=== PATIENT | female | born 1950 | race Caucasian/White ===

== ENCOUNTER 2021-05-29 11:06 | Emergency (ER) | payer MEDICARE, SELFPAY ==
[2021-05-29 11:26] VITALS: BP 174/81; PULSE 73; RESP 18; TEMP 36.7; O2SAT 93; BMI 30.1
--- NOTE | 2021-05-29 12:42 | XR_ITS ---
WS: [id number] XR chest 1V portable [id number] REASON FOR EXAM: cough FINDINGS: Mild tortuosity the thoracic aorta. Normal heart size. There are reticular lung opacities diffusely in both lungs of unknown chronicity. No pleural effusion. Bony thorax intact. XR/XR chest 1V portable [id number] IMPRESSION: Reticular lung opacities unknown chronicity. Findings are compatible with subac rené pneumonitis. Covid pneumonitis often has this appearance early on. Correlat e with the clinical setting.
--- NOTE | 2021-05-29 12:43 | ED_ITS ---
HPI - COVID General: Chief Complaint: COVID symptoms Stated Complaint: N/V/COVID EXPOSURE Time Seen by Provider: 05/29/21 12:30 Triage information: Has fever, cough or shortness of breath . Exposure to COVID + person last 14 days History of Present Illness: HPI Narrative: She states she has had a cough for the last few days had a fever up to 103. Says she is also felt nauseous. She had chills and muscle aches, denies headache has had some change in taste. Patient states that she was family members up in [facility] who had COVID over . She started symptoms on the after . MD complaint: has COVID symptoms Prior covid testing: no COVID 19 common symptoms: positive fever(s), chills, cough, non-productive cough, fatigue, body aches and nausea; negative headache(s), throat pain or nasal congestion COVID 19 other sytmptoms: negative chest pain Onset (ago): day(s) (Symptoms started interim bout after . Specifically patient says after ) Severity: mild Pertinent comorbid conditions: hypertension Treatment prior to arrival: none COVID Results: SARS-CoV-2 Antigen (Rapid) Negative (Negative) 05/29/21 13:00 05/29/21 Review of Systems Const: Reports: fever(s), chills, body aches and fatigue Eyes: Denies: change in vision or blurry vision ENMT: Denies: throat pain or nasal congestion Card: Denies: chest pain or dyspnea on exertion Resp: Reports: non-productive cough GI: Reports: nausea Musc: Denies: extremity pain Skin/Breast: Denies: rash Neuro: Denies: headache(s) Psych: Denies: anxiety or depression Tylor/Lymph: Denies: easy bruising PFS ED PFSH: Social History (Updated 07/03/19 @ 17:10 by Jodie Richard LPN) Smoking and tobacco status: never smoked Alcohol intake: never Physical Exam Const: COMMON NORMALS: no acute distress, average body habitus and patient oriented x3 HENMT: COMMON NORMALS: normocephalic HEAD & SCALP: normal to inspection and normocephalic FACE & SINUS: normal facial exam Eye: COMMON NORMALS: conjunctivae normal GENERAL EYE: appearance normal, both eyes and all related structures CONJUNCTIVA: Yes conjunctivae normal Neck/C-Spine: COMMON NORMALS: no JVD Chest: COMMONS NORMALS: normal inspection of the chest Resp: COMMON NORMALS: normal respiratory effort and clear to auscultation bilaterally AUSCULTATION: clear to auscultation bilaterally Cardio: COMMON NORMALS: no JVD, regular rate and regular rhythm RATE: regular rate RHYTHM: regular rhythm GI: COMMON NORMALS: Normal to inspection, nondistended, normoactive bowel sounds present Extremity: COMMON NORMALS: normal to inspection and full ROM Neuro: COMMON NORMALS: patient oriented x3 Course Vital Signs: Vital signs: Vital Signs Temperature 98.0 F 05/29/21 13:24 Pulse Rate 76 05/29/21 13:24 Respiratory Rate 18 05/29/21 13:24 Blood Pressure 164/94 05/29/21 13:24 Pulse Oximetry 94 05/29/21 13:24 MDM - COVID MDM Narrative: Medical decision making narrative: Patient presents with COVID symptoms. Cough and nausea. She was exposed to COVID on and developed symptoms starting on and has had them since. Her main complaint is nausea now and not able to drink much fluids. Patient was given a liter of fluids . laboratory studies was done and showed mild dehydration. COVID rapid is negative and PCR was obtained. Chest x-ray consistent with COVID pneumonitis. Discussed case with Dr. Daniels. patient does have pulse ox at home patient was encouraged to take medications, continue pushing fluids now and checking oxygen level and doing deep breathing exercise. Lab Data: Labs: Lab Results 05/29/21 05/29/21 05/29/21 13:00 13:00 13:00 WBC 5.2 10^3/uL 10^3/ uL (4.0-10.0) RBC 4.99 10^6/uL 10^6 /uL (4.1-5.3) Hgb 14.3 g/dL g/dL (11.5-15.3) Hct 43.0 % % (37.0-47.0) MCV 86.2 fl fl (81-99) MCH 28.7 pg pg (28.0-34.0) MCHC 33.3 g/dL g/dL (30.0-36.0) RDW 13.8 % % (12.1-15.1) Plt Count 213 10^3/cmm 10^3 /cmm (130-400) MPV 10.8 fL H fL (7.4-10.4) Neut % (Auto) 69.6 % % Lymph % (Auto) 20.3 % % Owen % (Auto) 9.5 % % Eos % (Auto) 0.2 % % Baso % (Auto) 0.2 % % Neut # (Auto) 3.60 10^3/uL 10^3 /uL (1.8-7.7) Lymph # (Auto) 1.1 10^3/uL 10^3/ uL (0.8-4.8) Owen # (Auto) 0.5 10^3/uL 10^3/ uL (0.2-0.9) Eos # (Auto) 0.0 10^3/uL 10^3/ uL (0.0-0.8) Baso # (Auto) 0.0 10^3/uL 10^3/ uL (0.0-0.1) Nucleated RBC % (a uto) 0 % % Nucleated RBCs # 0.0 /100WBC /100W BC Sodium 136 mmol/L mmol/L (136-145) Potassium 3.4 mmol/L L mmol /L (3.5-5.1) Chloride 98 mmol/L mmol/L (98-107) Carbon Dioxide 22 mmol/L mmol/L (22-29) Anion Gap 19.4 H (5-19) BUN 29 mg/dL H mg/dL (8-23) Creatinine 1.1 mg/dL H mg/dL (0.5-0.9) GFR Calculation 49.1 mL/min L mL/ min (90-130) Glucose 168 mg/dL H mg/dL (65-115) Calculated Osmolal ity 292 mOsm/kg mOsm/ kg (285-295) Calcium 8.6 mg/dL mg/dL (8.5-10.5) Total Bilirubin 0.5 mg/dL mg/dL (0.15-1.2) AST 31 U/L U/L (0-32) ALT 18 U/L U/L (0-33) Alkaline Phosphata se 113 IU/L H IU/L (35-105) Total Protein 7.4 g/dL g/dL (6.6-8.7) Albumin 3.8 g/dL g/dL (3.5-5.2) Globulin 3.6 g/dL g/dL (1.3-4.6) Lipase 19 U/L U/L (13-60) SARS-CoV-2 Ag (Rap id) Negative (Negative) COVID Results: SARS-CoV-2 Antigen (Rapid) Negative (Negative) 05/29/21 13:00 05/29/21 Discharge Plan Discharge Patient Disposition: Home Clinical Impression: Suspected severe acute respiratory syndrome coronavirus 2 (SARS-CoV-2) infection, Dehydration Condition: Stable Prescriptions: New Zofran 4 mg tablet 4 mg PO Q8H 3 Days Qty: 9 RF: 0 No Action tramadol 50 mg tablet 50 mg PO QID PRNRF: 0 gabapentin 300 mg capsule 300 mg PO BID RF: 0 metoprolol succinate 50 mg tablet extended release 24 hr 50 mg PO DAILY RF: 0 allopurinol 300 mg tablet 300 mg PO DAILY RF: 0 Discharge Orders: Discharge ED (Routine); Ordered 05/29/21 Ordered By: James Herron Discharge Diet: Advance as tolerated Discharge Activity: Increase activity as tolerated Patient Instructions: Dehydration (ED), COVID-19: Slow the Coronavirus Spread (ED) Activity Restrictions/Additional Instructions: Follow-up with medical provider as directed. Take medications as prescribed. Return to the ER or your medical provider if condition worsens. Please read and understand discharge instructions. If any questions ask please. Use pulse oximeter to check your oxygen level on a regular basis. Do deep breathing exercises. Make sure you drink plenty clear fluids. Coding Level of Care Code ED Associate Professor Of Counseling for Eugene Fwd Exam Comprehensive
[2021-05-29] MEDS: sodium chloride 0.9% 1,000 ML 999 ML IV (13:02)
[2021-05-29 13:18] LABS: Basophils % 0.2 %; Eosinophils % 0.2 %; Hemoglobin 14.3 g/dL (11.5-15.3); Lymphocytes # 1.1 10^3/uL (0.8-4.8); Lymphocytes % 20.3 %; Mean Corpuscular HGB Conc 33.3 g/dL (30.0-36.0); Mean Corpuscular Hemoglobin 28.7 pg (28.0-34.0); Mean Corpuscular Volume 86.2 fl (81-99); Mean Platelet Volume 10.8 fL (7.4-10.4); Monocytes # 0.5 10^3/uL (0.2-0.9); Monocytes % 9.5 %; Neutrophils % 69.6 %; Nucleated Red Blood Cells % 0 %; Platelet Count 213 10^3/cmm (130-400); Red Blood Count 4.99 10^6/uL (4.1-5.3); Red Cell Distribution Width 13.8 % (12.1-15.1); White Blood Count 5.2 10^3/uL (4.0-10.0)
[2021-05-29] MEDS: ondansetron 2 mg/ML SDV 2 mL 4 MG IVP (13:19)
[2021-05-29 13:24] VITALS: BP 164/94; PULSE 76; RESP 18; TEMP 36.7; O2SAT 94
[2021-05-29 13:39] LABS: Alanine Aminotransferase 18 U/L (0-33); Albumin Level 3.8 g/dL (3.5-5.2); Alkaline Phosphatase 113 IU/L (35-105); Anion Gap 19.4 (5-19); Aspartate Amino Transferase 31 U/L (0-32); Blood Urea Nitrogen 29 mg/dL (8-23); Calcium 8.6 mg/dL (8.5-10.5); Carbon Dioxide 22 mmol/L (22-29); Chloride 98 mmol/L (98-107); Globulin 3.6 g/dL (1.3-4.6); Glomerular Filtration Rate 49.1 mL/min (90-130); Glucose 168 mg/dL (65-115); Lipase 19 U/L (13-60); Osmolality Calculated 292 mOsm/kg (285-295); Potassium 3.4 mmol/L (3.5-5.1); Sodium 136 mmol/L (136-145); Total Bilirubin 0.5 mg/dL (0.15-1.2); Total Protein 7.4 g/dL (6.6-8.7)
[2021-05-29 13:43] LABS: Slide Review Slide Review Perform
[2021-05-29 13:49] LABS: SARS Covid-2 Antigen Negative (Negative)
[2021-05-29 14:55] VITALS: BP 169/74; PULSE 74; RESP 20; TEMP 36.7; O2SAT 94
[2021-05-29 16:10] LABS: Adenovirus Not Detected (NOT DETECT); Chlamydia Pneumoniae Not Detected (NOT DETECT); Coronavirus 229E,HKU1,NL63,OC4 Not Detected (NOT DETECT); Human Metapneumovirus Not Detected (NOT DETECT); Human Rhinovirus/Enterovirus Not Detected (NOT DETECT); Influenza A Not Detected (NOT DETECT); Influenza A H1 Not Detected (NOT DETECT); Influenza A H1-2009 Not Detected (NOT DETECT); Influenza A H3 Not Detected (NOT DETECT); Influenza B Not Detected (NOT DETECT); Mycoplasma Pneumoniae Not Detected (NOT DETECT); Parainfluenza Virus Type 1 Not Detected (NOT DETECT); Parainfluenza Virus Type 2 Not Detected (NOT DETECT); Parainfluenza Virus Type 3 Not Detected (NOT DETECT); Parainfluenza Virus Type 4 Not Detected (NOT DETECT); Respiratory Syncytial Virus A Not Detected (NOT DETECT); Respiratory Syncytial Virus B Not Detected (NOT DETECT); SARS-COV-2 Detected (NOT DETECT)
== END 2021-05-29 14:58 | disposition home or self-care (01) ==
PROVIDERS: Emergency Medicine; Emergency Provider Nurse Practitioner Family
DX: U07.1 COVID-19 (principal); E86.0 Dehydration
CPT/HCPCS: 71045; 80053; 83690; 85025; 87426; 87635; 96361; 96374; 99283; J2405; J7030

== ENCOUNTER → 2023-10-24 12:43 | Outpatient (BNVA) | payer MEDICARE, SELFPAY | PROVIDERS: PCP Family Medicine; Referring Provider Nurse Practitioner Family; Visit Provider Nurse Practitioner Family | DX: R39.9 Unspecified symptoms and signs involving the genitourinary system (principal) | CPT/HCPCS: 81000; 87077; 87086; 87184 ==